=== PATIENT | female | born 1945 | race Hispanic/Latino ===

== ENCOUNTER 2017-03-08 08:45 | Emergency (ER) | payer MEDICARE ==
[2017-03-08] MEDS ORDERED: Ondansetron HCl/PF 4 MG/2 ML Vial ONE (09:07)
[2017-03-08] MEDS ORDERED: Acetaminophen 500 MG TAB ONE (09:07)
[2017-03-08] MEDS ORDERED: diphenhydrAMINE HCl 50 MG/ML 1 ML VIAL ONE (09:07)
[2017-03-08] MEDS ORDERED: Sodium Chloride 0.9% 1,000 ML ONE ×2 (09:07→10:43)
[2017-03-08 09:52] LABS: ALT (SGPT) 28 U/L (0-55); AST (SGOT) 31 U/L (5-34); Albumin 4.2 g/dL (3.4-4.8); Alkaline Phosphatase 79 U/L (40-150); Anion Gap 18 mmol/L (10-20); BUN (Urea Nitrogen) 12 mg/dL (9.8-20.1); Calc. Creatinine Clearance 0 mL/min (70-130); Calcium 8.8 mg/dL (7.8-10.44); Carbon Dioxide 21 mmol/L (23-31); Chloride 94 mmol/L (98-107); Estimated GFR-MDRD 43; Globulin 2.8 g/dL (2.4-3.5); Glucose 164 mg/dL (83-110); Potassium 3.7 mmol/L (3.5-5.1); Sodium 129 mmol/L (136-145)
[2017-03-08 09:53] LABS: Hemoglobin 14.1 g/dL (12.0-16.0); MDiff Complete? YES; Mean Corpuscular HGB CONC 32.6 g/dL (32.0-36.0); Mean Corpuscular Hemoglobin 28.1 pg (27.0-31.0); Mean Corpuscular Volume 86.3 fl (81.0-99.0); Mean Platelet Volume 7.5 fL (7.4-10.4); Platelet Count 226 thou/uL (130-400); RBC Distribution Width 11.8 % (11.5-14.5); White Blood Cell (WBC) Count 8.3 thou/uL (4.8-10.8)
[2017-03-08 09:54] LABS: Band 7 % (5-11); Lymphocytes 6 % (21-51); Monocytes 7 % (0-10); Neutrophil 80 % (42-75); PLT Morphology Comment Appears Adequate
[2017-03-08] MEDS ORDERED: methylPREDNISolone Sod Succ/PF 125 MG/2 ML VIAL ONE (10:43)
== END 2017-03-08 12:15 | disposition home or self-care (01) ==
LOC: NAV ERS 08:45
DX: R21 Rash and other nonspecific skin eruption (principal); E11.9 Type 2 diabetes mellitus without complications; E78.5 Hyperlipidemia, unspecified; E78.00 Pure hypercholesterolemia, unspecified; Z79.84 Long term (current) use of oral hypoglycemic drugs; Z79.899 Other long term (current) drug therapy
CPT/HCPCS: 80053; 85025; 85652; 93005; 96361; 96374; 96375; J1200; J2405; J2930; J7050

== ENCOUNTER 2017-03-09 10:54 | Emergency (ER) | payer MEDICARE ==
[2017-03-09] MEDS ORDERED: Acetaminophen 500 MG TAB ONE (11:46)
[2017-03-09 12:07] LABS: PTT 35.7 SEC (22.9-36.1); Prothrombin Time 13.3 SEC (12.0-14.7)
[2017-03-09 12:14] LABS: Blood, Urine Large (Negative); Glucose, Urine (Dipstick) Negative (Negative); Leukocyte Negative (Negative); Nitrite Negative (Negative); Protein, Urine (Dipstick) 100 mg/dL (Neg-Trace); Urobilinogen 0.2 mg/dL (0.2-1.0)
[2017-03-09 12:26] LABS: Band 5 % (5-11); Eosinophils 1 % (0-10); Hemoglobin 13.8 g/dL (12.0-16.0); Lymphocytes 4 % (21-51); MDiff Complete? YES; Mean Corpuscular Hemoglobin 28.6 pg (27.0-31.0); Mean Corpuscular Volume 86.5 fl (81.0-99.0); Mean Platelet Volume 7.3 fL (7.4-10.4); Monocytes 5 % (0-10); Neutrophil 85 % (42-75); PLT Morphology Comment Appears Adequate; Platelet Count 200 thou/uL (130-400); RBC Distribution Width 11.9 % (11.5-14.5); Red Blood Cell (RBC) Count 4.84 mill/uL (4.20-5.40); White Blood Cell (WBC) Count 16.6 thou/uL (4.8-10.8)
[2017-03-09 12:32] LABS: ALT (SGPT) 31 U/L (0-55); AST (SGOT) 28 U/L (5-34); Albumin 3.7 g/dL (3.4-4.8); Alkaline Phosphatase 48 U/L (40-150); Anion Gap 20 mmol/L (10-20); BUN (Urea Nitrogen) 19 mg/dL (9.8-20.1); Bilirubin, Total 1.1 mg/dL (0.2-1.2); Calc. Creatinine Clearance 0 mL/min (70-130); Calcium 8.9 mg/dL (7.8-10.44); Carbon Dioxide 16 mmol/L (23-31); Chloride 97 mmol/L (98-107); Estimated GFR-MDRD 42; Globulin 2.8 g/dL (2.4-3.5); Glucose 118 mg/dL (83-110); Potassium 3.9 mmol/L (3.5-5.1); Protein, Total 6.5 g/dL (5.8-8.1); Sodium 129 mmol/L (136-145)
[2017-03-09 12:33] LABS: Clarity Hazy (Clear); Specific Gravity, Urine 1.028 (1.002-1.036)
[2017-03-09 12:34] LABS: Bilirubin Negative (Negative)
[2017-03-09 12:35] LABS: Bacteria/HPF Rare-Few HPF (None Seen); RBC/HPF 0-3 HPF (0-3); Squamous Epithelial 0-3 HPF (0-3); WBC/HPF 0-3 HPF (0-3)
--- NOTE | 2017-03-09 12:50 | RAD ---
TWO VIEWS CHEST: History: Cough. FINDINGS: PA and lateral views of the chest obtained. The lungs are well aerated. No evidence of active intrat horacic disease seen. No evidence of effusions, pneumonia, or pneumothorax is seen. IMPRESSION: Unremarkable two views of the chest. POS: [facility]
[2017-03-09 12:54] LABS: Icto Negative (Negative)
[2017-03-09 13:02] LABS: CRP (Inflammatory) 39.63 mg/dL (= or < 0.5)
[2017-03-09] MEDS ORDERED: Sodium Chloride 0.9% 1,000 ML ONE ×3 (13:03→14:41)
[2017-03-09] MEDS ORDERED: cefTRIAXone\\ROCEPHIN 2 GM VIAL ONE (13:50)
[2017-03-09] MEDS ORDERED: Sodium Chloride 0.9% 100 ML ONE (13:50)
[2017-03-09] MEDS ORDERED: Sodium Chloride 0.9% 250 ML 250 ML ONE (14:41)
[2017-03-09 15:07] LABS: CSF Source CSF; Clarity Clear (Clear); RBC Count - Manual 0 /cumm (None Seen); Tube # 4; WBC/NonHematics Count - Manual 3 /cumm (0-5)
== END 2017-03-09 14:50 | disposition short-term general hospital (02) ==
LOC: NAV ERS 10:54
DX: A41.9 Sepsis, unspecified organism (principal); E11.9 Type 2 diabetes mellitus without complications; E78.5 Hyperlipidemia, unspecified; Z79.84 Long term (current) use of oral hypoglycemic drugs; Z79.899 Other long term (current) drug therapy
CPT/HCPCS: 36415; 71020; 80053; 81003; 81015; 82945; 83605; 84157; 85025; 85610; 85730; 86140; 87040; 87070; 87086; 87205; 89051; 96361; 96365; 96374; J0696; J3370; J7050

== ENCOUNTER 2017-03-22 08:00 | Outpatient (CLI) | payer MEDICARE ==
[2017-03-22] MEDS ORDERED: Sodium Chloride For Inhalation 0.9% 3 ML NEB ONE (08:09)
[2017-03-22] MEDS ORDERED: Cosyntropin 250 MCG VIAL ONE (08:09)
== END 2017-03-22 08:01 | disposition home or self-care (01) ==
LOC: NAV ER/OP 08:00
PROVIDERS: ATTEND Internal Medicine
DX: E27.40 Unspecified adrenocortical insufficiency (principal)
CPT/HCPCS: 36415; 80400; J0834

== ENCOUNTER 2017-05-07 08:05 | Outpatient (CLI) | payer MEDICARE ==
[2017-05-07 09:28] LABS: ALT (SGPT) 20 U/L (8-55); AST (SGOT) 21 U/L (5-34); Albumin 4.2 g/dL (3.4-4.8); Alkaline Phosphatase 78 U/L (40-150); Anion Gap 14 mmol/L (10-20); BUN (Urea Nitrogen) 12 mg/dL (9.8-20.1); Bilirubin, Total 1.1 mg/dL (0.2-1.2); Calc. Creatinine Clearance 0 mL/min (70-130); Calcium 9.1 mg/dL (7.8-10.44); Carbon Dioxide 25 mmol/L (23-31); Cardiac Risk 3.1 (Less than 4.5); Chloride 104 mmol/L (98-107); Cholesterol 141 mg/dl (< 200 Desired); Estimated GFR-MDRD 73; Globulin 2.1 g/dL (2.4-3.5); Glucose 104 mg/dL (83-110); HDL Cholesterol 46 mg/dL (>60 Neg Risk); LDL Cholesterol, Calculated 77 mg/dL; Protein, Total 6.3 g/dL (6.0-8.3); Sodium 139 mmol/L (136-145); Triglycerides 88 mg/dL (Less than 150)
[2017-05-07 09:51] LABS: Thyroid Stimulating Hormone 2.6528 uIU/mL (0.35-4.94); Vitamin D, 25 Hydroxy 43.3 ng/ml (> 30.0)
[2017-05-07 17:32] LABS: Creatinine, Urine 76.24 mg/dL (47-110); Microalbumin Urine Less than 1.0 mg/dL (0.5-50.0); Microalbumin/Creat Ratio 13.1 mg/g (Less than 30)
[2017-05-07 17:34] LABS: Free Thyroxine Index 1.8 (1.4-3.1); T4 6.8 ug/dL (4.87-11.72)
== END 2017-05-07 08:06 | disposition home or self-care (01) ==
LOC: NAV LAB 08:05
PROVIDERS: ATTEND Internal Medicine
DX: E78.5 Hyperlipidemia, unspecified (principal); E11.9 Type 2 diabetes mellitus without complications; E55.9 Vitamin D deficiency, unspecified; M85.80 Other specified disorders of bone density and structure, unspecified site; E03.9 Hypothyroidism, unspecified; E53.8 Deficiency of other specified B group vitamins; R53.83 Other fatigue; Z79.899 Other long term (current) drug therapy
CPT/HCPCS: 36415; 80053; 80061; 82043; 82306; 82607; 84436; 84443; 84479

== ENCOUNTER 2017-06-03 12:05 | Outpatient (CLI) | payer MEDICARE | END 2017-06-03 12:06 | disposition home or self-care (01) | LOC: NAV LAB 12:05 | PROVIDERS: ATTEND Internal Medicine | DX: E11.9 Type 2 diabetes mellitus without complications (principal); E78.2 Mixed hyperlipidemia; E55.9 Vitamin D deficiency, unspecified; E03.9 Hypothyroidism, unspecified; E53.9 Vitamin B deficiency, unspecified; M85.80 Other specified disorders of bone density and structure, unspecified site; R53.83 Other fatigue; Z79.899 Other long term (current) drug therapy ==

== ENCOUNTER 2017-06-10 08:02 | Outpatient (CLI) | payer MEDICARE | END 2017-06-10 08:03 | disposition home or self-care (01) | LOC: NAVSJIPCSP 08:02 → NAV ER/OP 08:03 | PROVIDERS: ATTEND Internal Medicine | DX: E27.40 Unspecified adrenocortical insufficiency (principal) | CPT/HCPCS: 80400 ==

== ENCOUNTER 2017-07-09 19:38 | Emergency (ER) | payer MEDICARE ==
[2017-07-09] MEDS ORDERED: Acetaminophen 500 MG TAB ONE (20:00)
[2017-07-09 20:18] LABS: Bilirubin Negative (Negative); Blood, Urine Large (Negative); Clarity Cloudy (Clear); Glucose, Urine (Dipstick) Negative (Negative); Leukocyte Large (Negative); Nitrite Positive (Negative); Protein, Urine (Dipstick) 100 mg/dL (Neg-Trace); Urobilinogen 0.2 mg/dL (0.2-1.0)
[2017-07-09 20:19] LABS: Bacteria/HPF 2+ HPF (None Seen); Squamous Epithelial 0-3 HPF (0-3)
== END 2017-07-09 20:45 | disposition home or self-care (01) ==
LOC: NAV ERS 19:38
DX: N39.0 Urinary tract infection, site not specified (principal); E11.9 Type 2 diabetes mellitus without complications; E78.5 Hyperlipidemia, unspecified; M19.90 Unspecified osteoarthritis, unspecified site
CPT/HCPCS: 81003; 81015; 87077; 87086; 87186; 99283

== ENCOUNTER 2017-12-23 18:24 | Emergency (ER) | payer MEDICARE ==
[2017-12-23] MEDS ORDERED: Acetaminophen 500 MG TAB ONE (18:34)
[2017-12-23] MEDS ORDERED: Oseltamivir 75 MG CAP ONE (19:21)
== END 2017-12-23 19:29 | disposition home or self-care (01) ==
LOC: NAV ERS 18:24
DX: J06.9 Acute upper respiratory infection, unspecified (principal); E11.9 Type 2 diabetes mellitus without complications; E78.5 Hyperlipidemia, unspecified
CPT/HCPCS: 87804; 99283

== ENCOUNTER 2019-05-09 22:14 | Emergency (ER) | payer MEDICARE ==
--- NOTE | 2019-05-09 22:56 | RAD ---
Chest 2 views HISTORY: Hypertension. COMPARISON: 03/09/2017. FINDINGS: Cardiac silhouette and pulmonary vasculature are unremarkable. Mediastinum is midline. No c onfluent airspace consolidation, pneumothorax, or pleural fluid are apparent. IMPRESSION: No active cardiopulmonary abnormalities are demonstrated.
[2019-05-09 23:04] LABS: #Basophils 0.1 thou/uL (0.0-0.2); #Eosinphils 0.2 thou/uL (0.0-0.7); #Lymphocytes 2.7 thou/uL (1.20-3.40); #Monocytes 0.5 thou/uL (0.11-0.59); #Neutrophils 2.9 thou/uL (1.40-6.50); %Basophils 1.4 % (0.0-1.0); %Eosinophils 2.6 % (0.0-10.0); %Lymphocytes 42.7 % (21.0-51.0); %Monocytes 7.5 % (0.0-10.0); %Neutrophils 45.9 % (42.0-75.0); Hemoglobin 12.9 g/dL (12.0-16.0); Mean Corpuscular HGB CONC 31.7 g/dL (32.0-36.0); Mean Corpuscular Hemoglobin 27.3 pg (27.0-31.0); Mean Corpuscular Volume 86.2 fL (78.0-98.0); Mean Platelet Volume 6.9 fL (7.4-10.4); Platelet Count 258 thou/uL (130-400); RBC Distribution Width 12.2 % (11.5-14.5); Red Blood Cell (RBC) Count 4.71 mill/uL (4.20-5.40); White Blood Cell (WBC) Count 6.4 thou/uL (4.8-10.8)
[2019-05-09 23:24] LABS: ALT (SGPT) 19 U/L (8-55); AST (SGOT) 24 U/L (5-34); Albumin 4.6 g/dL (3.4-4.8); Alkaline Phosphatase 126 U/L (40-150); Anion Gap 16 mmol/L (10-20); BUN (Urea Nitrogen) 15 mg/dL (9.8-20.1); Calc. Creatinine Clearance 0 mL/min (70-130); Calcium 9.5 mg/dL (7.8-10.44); Carbon Dioxide 23 mmol/L (23-31); Chloride 104 mmol/L (98-107); Estimated GFR-MDRD 72; Globulin 2.4 g/dL (2.4-3.5); Glucose 106 mg/dL (83-110); Magnesium 2.1 mg/dL (1.6-2.6); Potassium 3.8 mmol/L (3.5-5.1); Sodium 139 mmol/L (136-145)
[2019-05-09] MEDS ORDERED: Aspirin Chewable 81 MG TAB ONE (23:57)
== END 2019-05-10 00:31 | disposition home or self-care (01) ==
LOC: NAV ERS 22:14
DX: R07.9 Chest pain, unspecified (principal); E11.9 Type 2 diabetes mellitus without complications; E78.5 Hyperlipidemia, unspecified; M19.90 Unspecified osteoarthritis, unspecified site; Z79.899 Other long term (current) drug therapy
CPT/HCPCS: 36415; 71046; 80053; 83735; 84484; 85025; 93005; 94760

== ENCOUNTER 2019-05-19 20:48 | Emergency (ER) | payer MEDICARE | END 2019-05-19 21:12 | disposition home or self-care (01) | LOC: NAV ERS 20:48 | DX: S90.562A Insect bite (nonvenomous), left ankle, initial encounter (principal); E78.5 Hyperlipidemia, unspecified; W57.XXXA Bitten or stung by nonvenomous insect and other nonvenomous arthropods, initial encounter; Z79.899 Other long term (current) drug therapy | CPT/HCPCS: 99281 ==

== ENCOUNTER 2024-07-23 16:45 | Emergency (ER) | payer MEDICARE ==
[2024-07-23 17:10] LABS: #Monocytes 0.4 thou/uL (0.11-0.59); #Neutrophils 3.4 thou/uL (1.40-6.50); %Basophils 0.9 % (0.0-1.0); %Eosinophils 0.3 % (0.0-10.0); %Lymphocytes 20.8 % (21.0-51.0); %Monocytes 7.9 % (0.0-10.0); %Neutrophils 70.1 % (42.0-75.0); Hematocrit 37.3 % (36.0-47.0); Hemoglobin 12.1 g/dL (12.0-16.0); Mean Corpuscular HGB CONC 32.4 g/dL (32.0-36.0); Mean Corpuscular Hemoglobin 27.5 pg (27.0-31.0); Mean Corpuscular Volume 84.9 fl (78.0-98.0); Mean Platelet Volume 7.3 fL (7.4-10.4); Platelet Count 238 10x3/uL (130-400); RBC Distribution Width 11.5 % (11.5-14.5); Red Blood Cell (RBC) Count 4.39 mill/uL (4.20-5.40); White Blood Cell (WBC) Count 4.8 10x3/uL (4.8-10.8)
[2024-07-23] MEDS ORDERED: Sodium Chloride 0.9% 1,000 ML ONE (17:18)
[2024-07-23 17:28] LABS: Bilirubin Negative (Negative); Blood, Urine Moderate (Negative); Glucose, Urine (Dipstick) Negative (Negative); Ketone, Urine Negative (Negative); Leukocyte Moderate (Negative); Nitrite Negative (Negative); Protein, Urine (Dipstick) 30 mg/dL (Neg-Trace); Specific Gravity, Urine 1.015 (1.005-1.030)
[2024-07-23 17:33] LABS: ALT (SGPT) 15 U/L (8-55); AST (SGOT) 21 U/L (5-34); Albumin 3.6 g/dL (3.4-4.8); Alkaline Phosphatase 78 U/L (40-110); Anion Gap 15 mmol/L (10-20); BUN (Urea Nitrogen) 10 mg/dL (9.8-20.1); Calc. Creatinine Clearance 0 mL/min (70-130); Calcium 9.3 mg/dL (7.8-10.44); Carbon Dioxide 24 mmol/L (23-31); Chloride 101 mmol/L (98-107); Estimated GFR 59; Globulin 3.4 g/dL (2.4-3.5); Glucose 186 mg/dL (83-110); Lipase 24 U/L (8-78); Potassium 3.5 mmol/L (3.5-5.1); Sodium 136 mmol/L (136-145)
[2024-07-23 17:34] LABS: Troponin I 0.019 ng/mL (< 0.028)
[2024-07-23 17:35] LABS: Clarity Hazy (Clear)
[2024-07-23 17:36] LABS: Bacteria/HPF 2+ HPF (None Seen); CAUTI Indications for Culture Alt mental st,lethar; RBC/HPF 0-3 HPF (0-3); Squamous Epithelial 0-3 HPF (0-3); WBC/HPF 21-50 HPF (0-3)
[2024-07-23 17:37] LABS: Urine Culture Reflex Yes Yes
[2024-07-23] MEDS ORDERED: Nitrofurantoin Macrocrystal 50 MG CAP ONE (17:57)
[2024-07-24 14:34] LABS: SARS-CoV-2 N1 Negative; SARS-CoV-2 N2 Negative; SARS-CoV-2 RNAse P1 Positive; SARS-CoV-2 RNAse P2 Positive
== END 2024-07-23 18:25 | disposition home or self-care (01) ==
LOC: NAV ERS 16:45
DX: N39.0 Urinary tract infection, site not specified (principal); E11.65 Type 2 diabetes mellitus with hyperglycemia
CPT/HCPCS: 71045; 81001; 82962; 83690; 84484; 87086; 87635; 93005; J7030; 36416; 80053; 84443; 85025; 96360